=== PATIENT | female | born 1945 | race Caucasian/White ===

== ENCOUNTER 2018-09-19 19:43 | Inpatient (IN) | payer MEDICARE, MEDICAID, OTHER ==
[2018-09-19 21:04] LABS: BASO % 0.3 % (0.0-1.0); EOS # 0.5 10^3/uL (0.0-0.50); EOS % 4.4 % (0.0-3.0); HEMATOCRIT 36.5 % (36.0-47.0); HEMOGLOBIN 11.3 g/dl (12.0-15.5); IMMATURE GRANULOCYTE % 0.3 % (0-3.0); LYMPH # 2.1 10^3/uL (1.5-4.5); LYMPH % 19.3 % (24.0-44.0); MEAN CORPUSCULAR HEMOGLOBIN 28.7 pg (27.0-33.0); MEAN CORPUSCULAR VOLUME 92.6 fl (80.0-96.0); MONO # 0.8 10^3/uL (0.0-0.8); MONO % 7.6 % (0.0-5.0); NEUTROPHILS # 7.5 10^3/uL (1.8-7.7); NEUTROPHILS % 68.1 % (36.0-66.0); PLATELET COUNT, AUTOMATED 300 10^3/uL (150-450); RED BLOOD COUNT 3.94 10^6/uL (4.00-5.40); RED CELL DISTRIBUTION WIDTH 14.9 % (11.5-14.5)
[2018-09-19 21:08] LABS: INR 1.04; PROTHROMBIN TIME 13.7 SECONDS (12.1-14.4)
[2018-09-19 21:09] LABS: PARTIAL THROMBOPLASTIN TIME 43.1 SECONDS (25.4-37.6)
[2018-09-19 21:11] LABS: ANION GAP 6 MEQ/L (8-16); BLOOD UREA NITROGEN 21 MG/DL (7-18); C REACTIVE PROTEIN QUANTITATIV 3.66 MG/DL (0.00-0.30); CALCIUM LEVEL 9.3 MG/DL (8.8-10.2); CARBON DIOXIDE LEVEL 31 MEQ/L (21-32); CHLORIDE LEVEL 101 MEQ/L (98-107); CREATININE FOR GFR 1.39 MG/DL (0.55-1.30); GLOMERULAR FILTRATION RATE 39.3 (>39); GLUCOSE, FASTING 249 MG/DL (70-100); POTASSIUM SERUM 4.3 MEQ/L (3.5-5.1); SODIUM LEVEL 138 MEQ/L (136-145)
[2018-09-19 21:40] LABS: ERYTHROCYTE SEDIMENTATION RATE 62 mm/hr (0-30)
[2018-09-19] MEDS: CLINDAMYCIN 900 MG in APPROPRIATE DILUENT 1 EA IV (22:47)
[2018-09-20] MEDS ORDERED: ANUSOL HC CREAM 30GM TOP (00:15)
[2018-09-20] MEDS: DOCUSATE SODIUM 100 MG CAP PO ×3 (00:30→22:07)
[2018-09-20] MEDS: ACETAMINOPHEN TAB 650MG DOSE (2X325MG) PO ×2 (00:46→08:06)
[2018-09-20] MEDS: METOPROLOL SUCC (TopROL XL) 50MG **XL** TAB PO ×2 (02:00→22:09)
[2018-09-20] MEDS: FERROUS GLUCONATE 324 MG TAB PO ×3 (02:00→22:10)
[2018-09-20] MEDS: PANTOPRAZOLE 40MG TAB (PROTONIX) PO ×2 (02:00→17:25)
[2018-09-20] MEDS: ATORVASTATIN 20 MG TAB PO ×2 (02:00→22:10)
[2018-09-20] MEDS: PREGABALIN 75 MG CAP(LYRICA) PO ×3 (02:01→22:10)
[2018-09-20] MEDS: VITAMIN D 1,000 INTERNATIONAL UNITS TABLET PO ×3 (02:01→22:07)
[2018-09-20] MEDS: FAMOTIDINE 20 MG TAB PO ×3 (02:01→22:10)
[2018-09-20] MEDS: SUCRALFATE 1 GM TAB PO ×3 (02:02→22:10)
[2018-09-20] MEDS: TOPIRAMATE (TopAMAX) 100 MG TAB PO ×3 (02:08→22:10)
[2018-09-20] MEDS: NS 1,000 ML IV ×2 (02:09→12:34)
[2018-09-20] MEDS ORDERED: DEXTROSE 50% 50 ML SYRINGE IV (03:15)
[2018-09-20] MEDS ORDERED: GLUCOSE 4 GM CHEW TABLET PO (03:15)
[2018-09-20] MEDS ORDERED: GLUCAGON FOR INJ 1 MG VIAL (J1610) SC (03:15)
[2018-09-20 04:15] LABS: BEDSIDE GLUCOSE 162 MG/DL (83-110)
[2018-09-20] MEDS: LEVEMIR (INSULIN DETEMIR) 1 UNITS/0.01ML SC ×2 (04:26→22:11)
[2018-09-20] MEDS: CLINDAMYCIN 900 MG in APPROPRIATE DILUENT 1 EA IV ×2 (08:06→17:25)
[2018-09-20] MEDS: FENOFIBRATE 48 MG TAB (TRICOR) PO (08:07)
[2018-09-20] MEDS: LOSARTAN 25 MG TAB PO (08:07)
[2018-09-20] MEDS: HumaLOG INSULIN (NovoLOG) PER UNIT SC ×4 (08:07→22:12)
[2018-09-20] MEDS: ALLOPURINOL 100 MG TAB PO (08:07)
[2018-09-20] MEDS: CETIRIZINE (ZyrTEC) 10 MG TAB PO (08:08)
[2018-09-20] MEDS: ADVAIR HFA 230/21MCG INHALER INH ×2 (08:33→20:53)
[2018-09-20] MEDS ORDERED: SITagliptin 50 MG TAB (JANUVIA) PO (09:00)
[2018-09-20 12:10] LABS: BEDSIDE GLUCOSE 290 MG/DL (83-110)
[2018-09-20] MEDS: ALBUTEROL SULFATE 2.5 MG/0.5 ML INH NEB SOLN NEB ×2 (16:07→20:53)
[2018-09-20] MEDS ORDERED: MIRALAX *UNIT DOSE* 17GM PACKET PO (16:15)
[2018-09-20 16:53] LABS: BEDSIDE GLUCOSE 329 MG/DL (83-110)
[2018-09-20] MEDS: FUROSEMIDE 20 MG TAB PO (17:25)
[2018-09-20] MEDS: hydroCHLOROthiazide 25 MG TAB PO (17:25)
[2018-09-20] MEDS: FLEET ENEMA PR (17:46)
[2018-09-20 20:28] LABS: BEDSIDE GLUCOSE 297 MG/DL (83-110)
[2018-09-20] MEDS: SENOKOT S TAB PO (22:10)
[2018-09-21] MEDS: CLINDAMYCIN 900 MG in APPROPRIATE DILUENT 1 EA IV ×3 (00:12→17:24)
[2018-09-21] MEDS: ACETAMINOPHEN TAB 650MG DOSE (2X325MG) PO ×2 (00:13→22:04)
[2018-09-21 07:24] LABS: HEMATOCRIT 32.5 % (36.0-47.0); HEMOGLOBIN 9.8 g/dl (12.0-15.5); MEAN CORPUSCULAR HEMOGLOBIN 28.2 pg (27.0-33.0); MEAN CORPUSCULAR HGB CONC 30.2 g/dl (32.0-36.5); MEAN CORPUSCULAR VOLUME 93.4 fl (80.0-96.0); PLATELET COUNT, AUTOMATED 273 10^3/uL (150-450); RED BLOOD COUNT 3.48 10^6/uL (4.00-5.40); RED CELL DISTRIBUTION WIDTH 14.8 % (11.5-14.5); WHITE BLOOD COUNT 6.8 10^3/uL (4.0-10.0)
[2018-09-21] MEDS: ALBUTEROL SULFATE 2.5 MG/0.5 ML INH NEB SOLN NEB ×3 (07:44→15:48)
[2018-09-21] MEDS: ADVAIR HFA 230/21MCG INHALER INH ×2 (07:45→21:00)
[2018-09-21 07:56] LABS: ANION GAP 7 MEQ/L (8-16); BLOOD UREA NITROGEN 30 MG/DL (7-18); CALCIUM LEVEL 8.8 MG/DL (8.8-10.2); CARBON DIOXIDE LEVEL 27 MEQ/L (21-32); CHLORIDE LEVEL 104 MEQ/L (98-107); GLOMERULAR FILTRATION RATE 29.2 (>39); GLUCOSE, FASTING 310 MG/DL (70-100); POTASSIUM SERUM 4.1 MEQ/L (3.5-5.1); SODIUM LEVEL 138 MEQ/L (136-145)
[2018-09-21 07:58] LABS: FERRITIN 48 NG/ML (8-252); IRON (FE) 24 UG/DL (50-170); TOTAL IRON BINDING CAPACITY 341 UG/DL (250-450)
[2018-09-21] MEDS: DOCUSATE SODIUM 100 MG CAP PO ×2 (08:25→21:56)
[2018-09-21] MEDS: FAMOTIDINE 20 MG TAB PO ×2 (08:25→21:55)
[2018-09-21] MEDS: FUROSEMIDE 40 MG/4 ML VIAL (J1940) IV ×2 (08:25→17:24)
[2018-09-21] MEDS: VITAMIN D 1,000 INTERNATIONAL UNITS TABLET PO ×2 (08:25→21:56)
[2018-09-21] MEDS: CETIRIZINE (ZyrTEC) 10 MG TAB PO (08:26)
[2018-09-21] MEDS: TOPIRAMATE (TopAMAX) 100 MG TAB PO ×2 (08:26→21:56)
[2018-09-21] MEDS: SENOKOT S TAB PO ×2 (08:26→21:56)
[2018-09-21] MEDS: LOSARTAN 25 MG TAB PO (08:26)
[2018-09-21] MEDS: FENOFIBRATE 48 MG TAB (TRICOR) PO (08:26)
[2018-09-21] MEDS: SUCRALFATE 1 GM TAB PO ×2 (08:26→21:56)
[2018-09-21] MEDS: ALLOPURINOL 100 MG TAB PO (08:26)
[2018-09-21] MEDS: FERROUS GLUCONATE 324 MG TAB PO ×2 (08:26→21:56)
[2018-09-21] MEDS: PREGABALIN 75 MG CAP(LYRICA) PO ×2 (08:27→21:55)
[2018-09-21] MEDS: LEVEMIR (INSULIN DETEMIR) 1 UNITS/0.01ML SC ×2 (08:27→21:56)
[2018-09-21] MEDS: HumaLOG INSULIN (NovoLOG) PER UNIT SC ×4 (08:28→21:00)
[2018-09-21] MEDS ORDERED: LEVEMIR (INSULIN DETEMIR) 1 UNITS/0.01ML SC (09:00)
[2018-09-21 11:48] LABS: VITAMIN B12 LEVEL 368 PG/ML (247-911)
[2018-09-21 11:49] LABS: FOLATE 6.6 NG/ML (>5.4)
[2018-09-21 12:28] LABS: BEDSIDE GLUCOSE 292 MG/DL (83-110)
[2018-09-21 17:12] LABS: BEDSIDE GLUCOSE 215 MG/DL (83-110)
[2018-09-21] MEDS: PANTOPRAZOLE 40MG TAB (PROTONIX) PO (17:24)
[2018-09-21 20:28] LABS: BEDSIDE GLUCOSE 248 MG/DL (83-110)
[2018-09-21] MEDS: ATORVASTATIN 20 MG TAB PO (21:55)
[2018-09-21] MEDS: METOPROLOL SUCC (TopROL XL) 50MG **XL** TAB PO (21:55)
[2018-09-22] MEDS: CLINDAMYCIN 900 MG in APPROPRIATE DILUENT 1 EA IV ×2 (00:19→08:29)
[2018-09-22 07:03] LABS: HEMATOCRIT 33.6 % (36.0-47.0); HEMOGLOBIN 10.4 g/dl (12.0-15.5); MEAN CORPUSCULAR HEMOGLOBIN 28.6 pg (27.0-33.0); MEAN CORPUSCULAR VOLUME 92.3 fl (80.0-96.0); PLATELET COUNT, AUTOMATED 307 10^3/uL (150-450); RED BLOOD COUNT 3.64 10^6/uL (4.00-5.40); RED CELL DISTRIBUTION WIDTH 14.6 % (11.5-14.5)
[2018-09-22 07:35] LABS: ANION GAP 8 MEQ/L (8-16); BLOOD UREA NITROGEN 40 MG/DL (7-18); CALCIUM LEVEL 8.9 MG/DL (8.8-10.2); CARBON DIOXIDE LEVEL 30 MEQ/L (21-32); CHLORIDE LEVEL 99 MEQ/L (98-107); CREATININE FOR GFR 1.97 MG/DL (0.55-1.30); GLOMERULAR FILTRATION RATE 26.3 (>39); GLUCOSE, FASTING 313 MG/DL (70-100); POTASSIUM SERUM 4.5 MEQ/L (3.5-5.1); SODIUM LEVEL 137 MEQ/L (136-145)
[2018-09-22] MEDS: ALBUTEROL SULFATE 2.5 MG/0.5 ML INH NEB SOLN NEB ×3 (07:40→15:38)
[2018-09-22] MEDS: ADVAIR HFA 230/21MCG INHALER INH ×2 (07:40→19:57)
[2018-09-22] MEDS: FUROSEMIDE 40 MG/4 ML VIAL (J1940) IV ×2 (08:28→17:53)
[2018-09-22] MEDS: HumaLOG INSULIN (NovoLOG) PER UNIT SC ×4 (08:29→21:00)
[2018-09-22] MEDS: LEVEMIR (INSULIN DETEMIR) 1 UNITS/0.01ML SC ×3 (08:29→21:00)
[2018-09-22] MEDS: LOSARTAN 25 MG TAB PO (08:30)
[2018-09-22] MEDS: ACETAMINOPHEN TAB 650MG DOSE (2X325MG) PO ×3 (08:30→22:00)
[2018-09-22] MEDS: CETIRIZINE (ZyrTEC) 10 MG TAB PO (08:30)
[2018-09-22] MEDS: FERROUS GLUCONATE 324 MG TAB PO ×2 (08:30→21:49)
[2018-09-22] MEDS: VITAMIN D 1,000 INTERNATIONAL UNITS TABLET PO ×2 (08:31→21:49)
[2018-09-22] MEDS: ALLOPURINOL 100 MG TAB PO (08:31)
[2018-09-22] MEDS: TOPIRAMATE (TopAMAX) 100 MG TAB PO ×2 (08:32→21:49)
[2018-09-22] MEDS: FAMOTIDINE 20 MG TAB PO ×2 (08:32→21:49)
[2018-09-22] MEDS: DOCUSATE SODIUM 100 MG CAP PO ×2 (08:32→21:45)
[2018-09-22] MEDS: FENOFIBRATE 48 MG TAB (TRICOR) PO (08:32)
[2018-09-22] MEDS: SENOKOT S TAB PO ×2 (08:33→21:50)
[2018-09-22] MEDS: PREGABALIN 75 MG CAP(LYRICA) PO ×2 (08:33→21:46)
[2018-09-22] MEDS: SUCRALFATE 1 GM TAB PO ×2 (08:33→21:49)
[2018-09-22] MEDS: GOLYTELY SOLN 4000 ML BTL PO (12:01)
[2018-09-22 12:07] LABS: C REACTIVE PROTEIN QUANTITATIV 2.11 MG/DL (0.00-0.30)
[2018-09-22] MEDS: LACTOBACILLUS ACIDOPHILUS CAP (BACID) PO ×3 (12:29→21:50)
[2018-09-22 14:26] LABS: ESTIMATED AVERAGE GLUCOSE 229 MG/DL (60-110); HEMOGLOBIN A1c 9.6 %
[2018-09-22] MEDS: CLINDAMYCIN 150 MG CAP PO ×2 (14:35→21:49)
[2018-09-22] MEDS: PANTOPRAZOLE 40MG TAB (PROTONIX) PO (17:53)
[2018-09-22] MEDS: METOPROLOL SUCC (TopROL XL) 50MG **XL** TAB PO (21:49)
[2018-09-22] MEDS: ATORVASTATIN 20 MG TAB PO (21:50)
[2018-09-23 02:26] LABS: BEDSIDE GLUCOSE 269 MG/DL (83-110)
[2018-09-23 02:26] LABS: BEDSIDE GLUCOSE 197 MG/DL (83-110)
[2018-09-23 02:26] LABS: BEDSIDE GLUCOSE 186 MG/DL (83-110)
[2018-09-23] MEDS: CLINDAMYCIN 150 MG CAP PO ×3 (06:23→21:51)
[2018-09-23 06:57] LABS: HEMATOCRIT 33.4 % (36.0-47.0); HEMOGLOBIN 10.6 g/dl (12.0-15.5); MEAN CORPUSCULAR HEMOGLOBIN 28.1 pg (27.0-33.0); MEAN CORPUSCULAR HGB CONC 31.7 g/dl (32.0-36.5); MEAN CORPUSCULAR VOLUME 88.6 fl (80.0-96.0); PLATELET COUNT, AUTOMATED 335 10^3/uL (150-450); RED BLOOD COUNT 3.77 10^6/uL (4.00-5.40); RED CELL DISTRIBUTION WIDTH 14.6 % (11.5-14.5); WHITE BLOOD COUNT 7.3 10^3/uL (4.0-10.0)
[2018-09-23] MEDS: ADVAIR HFA 230/21MCG INHALER INH ×2 (07:12→20:04)
[2018-09-23] MEDS: ALBUTEROL SULFATE 2.5 MG/0.5 ML INH NEB SOLN NEB ×4 (07:12→23:33)
[2018-09-23 07:20] LABS: ANION GAP 9 MEQ/L (8-16); BLOOD UREA NITROGEN 40 MG/DL (7-18); CALCIUM LEVEL 9.2 MG/DL (8.8-10.2); CARBON DIOXIDE LEVEL 31 MEQ/L (21-32); CHLORIDE LEVEL 100 MEQ/L (98-107); CREATININE FOR GFR 1.79 MG/DL (0.55-1.30); GLOMERULAR FILTRATION RATE 29.4 (>39); GLUCOSE, FASTING 203 MG/DL (70-100); POTASSIUM SERUM 3.5 MEQ/L (3.5-5.1); SODIUM LEVEL 140 MEQ/L (136-145)
[2018-09-23] MEDS: HumaLOG INSULIN (NovoLOG) PER UNIT SC ×4 (08:09→21:52)
[2018-09-23] MEDS: LACTOBACILLUS ACIDOPHILUS CAP (BACID) PO ×4 (08:10→21:49)
[2018-09-23] MEDS ORDERED: PROPOFOL 200 MG/20 ML VIAL As Ordered (10:22)
[2018-09-23] MEDS ORDERED: LIDOCAINE 2% INJ 100 MG/5 ML SDV (FOR ANES.) As Ordered (10:22)
[2018-09-23] MEDS ORDERED: fentaNYL 100 MCG/2 ML INJECTION (J3010) As Ordered (10:22)
[2018-09-23] MEDS ORDERED: PHENYLephrine HCL 500 MCG/5 ML (100MCG/ML) SYRINGE (J2370) As Ordered (10:57)
[2018-09-23] MEDS ORDERED: ONDANSETRON 4MG/2ML VIAL (J2405) IV (11:30)
[2018-09-23 12:33] LABS: BEDSIDE GLUCOSE 216 MG/DL (83-110)
[2018-09-23] MEDS: FUROSEMIDE 40 MG/4 ML VIAL (J1940) IV ×2 (12:58→18:13)
[2018-09-23] MEDS: LR 1,000 ML IV (12:58)
[2018-09-23] MEDS: LEVEMIR (INSULIN DETEMIR) 1 UNITS/0.01ML SC ×2 (12:59→21:52)
[2018-09-23] MEDS: ACETAMINOPHEN TAB 650MG DOSE (2X325MG) PO ×2 (13:00→18:12)
[2018-09-23] MEDS: LOSARTAN 25 MG TAB PO (13:00)
[2018-09-23] MEDS: SENOKOT S TAB PO ×2 (13:01→21:50)
[2018-09-23] MEDS: PREGABALIN 75 MG CAP(LYRICA) PO ×2 (13:01→21:49)
[2018-09-23] MEDS: FERROUS GLUCONATE 324 MG TAB PO ×2 (13:01→21:51)
[2018-09-23] MEDS: DOCUSATE SODIUM 100 MG CAP PO ×2 (13:01→21:51)
[2018-09-23] MEDS: FENOFIBRATE 48 MG TAB (TRICOR) PO (13:01)
[2018-09-23] MEDS: TOPIRAMATE (TopAMAX) 100 MG TAB PO ×2 (13:02→21:51)
[2018-09-23] MEDS: VITAMIN D 1,000 INTERNATIONAL UNITS TABLET PO ×2 (13:02→21:51)
[2018-09-23] MEDS: SUCRALFATE 1 GM TAB PO ×2 (13:02→21:50)
[2018-09-23] MEDS: ALLOPURINOL 100 MG TAB PO (13:02)
[2018-09-23] MEDS: FAMOTIDINE 20 MG TAB PO ×2 (13:02→21:51)
[2018-09-23] MEDS: CETIRIZINE (ZyrTEC) 10 MG TAB PO (13:02)
[2018-09-23 17:20] LABS: BEDSIDE GLUCOSE 346 MG/DL (83-110)
[2018-09-23] MEDS: PANTOPRAZOLE 40MG TAB (PROTONIX) PO (18:10)
[2018-09-23 21:15] LABS: BEDSIDE GLUCOSE 346 MG/DL (83-110)
[2018-09-23] MEDS: METOPROLOL SUCC (TopROL XL) 50MG **XL** TAB PO (21:50)
[2018-09-23] MEDS: ATORVASTATIN 20 MG TAB PO (21:51)
[2018-09-24] MEDS: CLINDAMYCIN 150 MG CAP PO ×3 (05:09→21:00)
[2018-09-24 06:49] LABS: HEMATOCRIT 32.8 % (36.0-47.0); HEMOGLOBIN 10.3 g/dl (12.0-15.5); MEAN CORPUSCULAR HEMOGLOBIN 28.2 pg (27.0-33.0); MEAN CORPUSCULAR HGB CONC 31.4 g/dl (32.0-36.5); MEAN CORPUSCULAR VOLUME 89.9 fl (80.0-96.0); PLATELET COUNT, AUTOMATED 337 10^3/uL (150-450); RED BLOOD COUNT 3.65 10^6/uL (4.00-5.40); RED CELL DISTRIBUTION WIDTH 14.7 % (11.5-14.5); WHITE BLOOD COUNT 6.1 10^3/uL (4.0-10.0)
[2018-09-24 07:10] LABS: ANION GAP 7 MEQ/L (8-16); BLOOD UREA NITROGEN 47 MG/DL (7-18); CALCIUM LEVEL 9.1 MG/DL (8.8-10.2); CARBON DIOXIDE LEVEL 31 MEQ/L (21-32); CHLORIDE LEVEL 99 MEQ/L (98-107); CREATININE FOR GFR 1.97 MG/DL (0.55-1.30); GLOMERULAR FILTRATION RATE 26.3 (>39); GLUCOSE, FASTING 241 MG/DL (70-100); POTASSIUM SERUM 3.6 MEQ/L (3.5-5.1); SODIUM LEVEL 137 MEQ/L (136-145)
[2018-09-24] MEDS: ALBUTEROL SULFATE 2.5 MG/0.5 ML INH NEB SOLN NEB ×3 (07:12→23:12)
[2018-09-24] MEDS: ADVAIR HFA 230/21MCG INHALER INH ×2 (07:12→20:18)
[2018-09-24] MEDS: VITAMIN D 1,000 INTERNATIONAL UNITS TABLET PO ×2 (08:42→20:58)
[2018-09-24] MEDS: FERROUS GLUCONATE 324 MG TAB PO ×2 (08:42→20:57)
[2018-09-24] MEDS: PREGABALIN 75 MG CAP(LYRICA) PO ×2 (08:42→20:57)
[2018-09-24] MEDS: TOPIRAMATE (TopAMAX) 100 MG TAB PO ×2 (08:43→20:56)
[2018-09-24] MEDS: SUCRALFATE 1 GM TAB PO ×2 (08:43→20:57)
[2018-09-24] MEDS: LACTOBACILLUS ACIDOPHILUS CAP (BACID) PO ×4 (08:43→20:56)
[2018-09-24] MEDS: DOCUSATE SODIUM 100 MG CAP PO ×2 (08:43→21:00)
[2018-09-24] MEDS: FENOFIBRATE 48 MG TAB (TRICOR) PO (08:43)
[2018-09-24] MEDS: LOSARTAN 25 MG TAB PO (08:43)
[2018-09-24] MEDS: CETIRIZINE (ZyrTEC) 10 MG TAB PO (08:43)
[2018-09-24] MEDS: FAMOTIDINE 20 MG TAB PO ×2 (08:43→20:56)
[2018-09-24] MEDS: ALLOPURINOL 100 MG TAB PO (08:44)
[2018-09-24] MEDS: LEVEMIR (INSULIN DETEMIR) 1 UNITS/0.01ML SC ×2 (08:45→20:59)
[2018-09-24] MEDS: HumaLOG INSULIN (NovoLOG) PER UNIT SC ×4 (08:46→20:59)
[2018-09-24] MEDS: SENOKOT S TAB PO ×2 (08:51→20:56)
[2018-09-24 11:13] LABS: BEDSIDE GLUCOSE 275 MG/DL (83-110)
[2018-09-24 16:14] LABS: BEDSIDE GLUCOSE 240 MG/DL (83-110)
[2018-09-24] MEDS: PANTOPRAZOLE 40MG TAB (PROTONIX) PO (17:16)
[2018-09-24 20:43] LABS: BEDSIDE GLUCOSE 271 MG/DL (83-110)
[2018-09-24] MEDS: ATORVASTATIN 20 MG TAB PO (20:56)
[2018-09-24] MEDS: METOPROLOL SUCC (TopROL XL) 50MG **XL** TAB PO (20:58)
[2018-09-25] MEDS: CLINDAMYCIN 150 MG CAP PO ×2 (05:34→13:41)
[2018-09-25 06:31] LABS: HEMATOCRIT 31.5 % (36.0-47.0); HEMOGLOBIN 9.8 g/dl (12.0-15.5); MEAN CORPUSCULAR HEMOGLOBIN 28.2 pg (27.0-33.0); MEAN CORPUSCULAR HGB CONC 31.1 g/dl (32.0-36.5); MEAN CORPUSCULAR VOLUME 90.8 fl (80.0-96.0); PLATELET COUNT, AUTOMATED 327 10^3/uL (150-450); RED BLOOD COUNT 3.47 10^6/uL (4.00-5.40); RED CELL DISTRIBUTION WIDTH 14.6 % (11.5-14.5); WHITE BLOOD COUNT 6.1 10^3/uL (4.0-10.0)
[2018-09-25 06:40] LABS: ANION GAP 4 MEQ/L (8-16); BLOOD UREA NITROGEN 44 MG/DL (7-18); CARBON DIOXIDE LEVEL 31 MEQ/L (21-32); CHLORIDE LEVEL 104 MEQ/L (98-107); CREATININE FOR GFR 1.61 MG/DL (0.55-1.30); GLOMERULAR FILTRATION RATE 33.2 (>39); GLUCOSE, FASTING 293 MG/DL (70-100); SODIUM LEVEL 139 MEQ/L (136-145)
[2018-09-25] MEDS: ADVAIR HFA 230/21MCG INHALER INH ×2 (07:40→19:56)
[2018-09-25] MEDS: ALBUTEROL SULFATE 2.5 MG/0.5 ML INH NEB SOLN NEB ×3 (07:41→17:37)
[2018-09-25] MEDS: FENOFIBRATE 48 MG TAB (TRICOR) PO (08:13)
[2018-09-25] MEDS: SUCRALFATE 1 GM TAB PO ×2 (08:13→22:00)
[2018-09-25] MEDS: PREGABALIN 75 MG CAP(LYRICA) PO ×2 (08:13→22:02)
[2018-09-25] MEDS: FAMOTIDINE 20 MG TAB PO ×2 (08:13→22:00)
[2018-09-25] MEDS: LACTOBACILLUS ACIDOPHILUS CAP (BACID) PO ×4 (08:13→21:59)
[2018-09-25] MEDS: FERROUS GLUCONATE 324 MG TAB PO ×2 (08:14→21:59)
[2018-09-25] MEDS: DOCUSATE SODIUM 100 MG CAP PO ×2 (08:14→08:18)
[2018-09-25] MEDS: SENOKOT S TAB PO ×2 (08:14→08:18)
[2018-09-25] MEDS: CETIRIZINE (ZyrTEC) 10 MG TAB PO (08:14)
[2018-09-25] MEDS: ALLOPURINOL 100 MG TAB PO (08:14)
[2018-09-25] MEDS: TOPIRAMATE (TopAMAX) 100 MG TAB PO ×2 (08:14→21:59)
[2018-09-25] MEDS: VITAMIN D 1,000 INTERNATIONAL UNITS TABLET PO ×2 (08:14→21:59)
[2018-09-25] MEDS: HumaLOG INSULIN (NovoLOG) PER UNIT SC ×4 (08:15→21:00)
[2018-09-25] MEDS: LEVEMIR (INSULIN DETEMIR) 1 UNITS/0.01ML SC ×2 (08:15→22:01)
[2018-09-25 12:17] LABS: BEDSIDE GLUCOSE 205 MG/DL (83-110)
[2018-09-25] MEDS: FUROSEMIDE 20 MG TAB PO (12:39)
[2018-09-25] MEDS: APIXABAN 2.5 MG TAB (ELIQUIS) PO ×2 (12:39→21:59)
[2018-09-25 16:43] LABS: BEDSIDE GLUCOSE 340 MG/DL (83-110)
[2018-09-25] MEDS: PANTOPRAZOLE 40MG TAB (PROTONIX) PO (16:46)
[2018-09-25 21:51] LABS: BEDSIDE GLUCOSE 239 MG/DL (83-110)
[2018-09-25] MEDS: ATORVASTATIN 20 MG TAB PO (21:59)
[2018-09-25] MEDS: DOXYCYCLINE HYCLATE 100 MG TAB PO (21:59)
[2018-09-25] MEDS: METOPROLOL SUCC (TopROL XL) 50MG **XL** TAB PO (22:00)
[2018-09-26] MEDS: ADVAIR HFA 230/21MCG INHALER INH ×2 (07:32→20:26)
[2018-09-26] MEDS: ALBUTEROL SULFATE 2.5 MG/0.5 ML INH NEB SOLN NEB ×4 (07:36→23:28)
[2018-09-26 08:00] LABS: HEMOGLOBIN 9.8 g/dl (12.0-15.5); MEAN CORPUSCULAR HEMOGLOBIN 27.8 pg (27.0-33.0); MEAN CORPUSCULAR HGB CONC 30.6 g/dl (32.0-36.5); MEAN CORPUSCULAR VOLUME 90.7 fl (80.0-96.0); PLATELET COUNT, AUTOMATED 327 10^3/uL (150-450); RED BLOOD COUNT 3.53 10^6/uL (4.00-5.40); RED CELL DISTRIBUTION WIDTH 14.6 % (11.5-14.5); WHITE BLOOD COUNT 6.6 10^3/uL (4.0-10.0)
[2018-09-26 08:27] LABS: ANION GAP 5 MEQ/L (8-16); BLOOD UREA NITROGEN 42 MG/DL (7-18); CALCIUM LEVEL 9.4 MG/DL (8.8-10.2); CARBON DIOXIDE LEVEL 31 MEQ/L (21-32); CHLORIDE LEVEL 106 MEQ/L (98-107); CREATININE FOR GFR 1.41 MG/DL (0.55-1.30); GLOMERULAR FILTRATION RATE 38.7 (>39); GLUCOSE, FASTING 216 MG/DL (70-100); POTASSIUM SERUM 4.1 MEQ/L (3.5-5.1); SODIUM LEVEL 142 MEQ/L (136-145)
[2018-09-26] MEDS ORDERED: LEVEMIR (INSULIN DETEMIR) 1 UNITS/0.01ML SC (09:00)
[2018-09-26] MEDS: LEVEMIR (INSULIN DETEMIR) 1 UNITS/0.01ML SC ×2 (10:12→20:52)
[2018-09-26] MEDS: FENOFIBRATE 48 MG TAB (TRICOR) PO (10:13)
[2018-09-26] MEDS: HumaLOG INSULIN (NovoLOG) PER UNIT SC ×4 (10:13→20:52)
[2018-09-26] MEDS: VITAMIN D 1,000 INTERNATIONAL UNITS TABLET PO ×2 (10:13→20:52)
[2018-09-26] MEDS: FUROSEMIDE 20 MG TAB PO (10:14)
[2018-09-26] MEDS: FAMOTIDINE 20 MG TAB PO ×2 (10:14→20:54)
[2018-09-26] MEDS: CETIRIZINE (ZyrTEC) 10 MG TAB PO (10:14)
[2018-09-26] MEDS: DOXYCYCLINE HYCLATE 100 MG TAB PO ×2 (10:15→20:53)
[2018-09-26] MEDS: TOPIRAMATE (TopAMAX) 100 MG TAB PO ×2 (10:15→20:54)
[2018-09-26] MEDS: PREGABALIN 75 MG CAP(LYRICA) PO ×2 (10:15→20:53)
[2018-09-26] MEDS: FERROUS GLUCONATE 324 MG TAB PO ×2 (10:16→20:53)
[2018-09-26] MEDS: SUCRALFATE 1 GM TAB PO ×2 (10:16→20:53)
[2018-09-26] MEDS: APIXABAN 2.5 MG TAB (ELIQUIS) PO ×2 (10:16→20:54)
[2018-09-26] MEDS: ALLOPURINOL 100 MG TAB PO (10:16)
[2018-09-26] MEDS: LACTOBACILLUS ACIDOPHILUS CAP (BACID) PO ×4 (10:16→20:53)
[2018-09-26] MEDS: ACETAMINOPHEN TAB 650MG DOSE (2X325MG) PO (10:19)
[2018-09-26] MEDS: PANTOPRAZOLE 40MG TAB (PROTONIX) PO (16:56)
[2018-09-26] MEDS: ATORVASTATIN 20 MG TAB PO (20:53)
[2018-09-26] MEDS: METOPROLOL SUCC (TopROL XL) 50MG **XL** TAB PO (20:54)
[2018-09-27 03:08] LABS: BEDSIDE GLUCOSE 266 MG/DL (83-110)
[2018-09-27 03:08] LABS: BEDSIDE GLUCOSE 214 MG/DL (83-110)
[2018-09-27 03:08] LABS: BEDSIDE GLUCOSE 266 MG/DL (83-110)
[2018-09-27 03:08] LABS: BEDSIDE GLUCOSE 279 MG/DL (83-110)
[2018-09-27 06:12] LABS: HEMATOCRIT 32.1 % (36.0-47.0); MEAN CORPUSCULAR HEMOGLOBIN 28.7 pg (27.0-33.0); MEAN CORPUSCULAR HGB CONC 31.2 g/dl (32.0-36.5); MEAN CORPUSCULAR VOLUME 92.2 fl (80.0-96.0); PLATELET COUNT, AUTOMATED 310 10^3/uL (150-450); RED BLOOD COUNT 3.48 10^6/uL (4.00-5.40); RED CELL DISTRIBUTION WIDTH 14.6 % (11.5-14.5); WHITE BLOOD COUNT 6.9 10^3/uL (4.0-10.0)
[2018-09-27 06:18] LABS: ANION GAP 4 MEQ/L (8-16); BLOOD UREA NITROGEN 48 MG/DL (7-18); CALCIUM LEVEL 9.1 MG/DL (8.8-10.2); CARBON DIOXIDE LEVEL 31 MEQ/L (21-32); CHLORIDE LEVEL 106 MEQ/L (98-107); CREATININE FOR GFR 1.51 MG/DL (0.55-1.30); GLOMERULAR FILTRATION RATE 35.8 (>39); GLUCOSE, FASTING 237 MG/DL (70-100); POTASSIUM SERUM 4.2 MEQ/L (3.5-5.1); SODIUM LEVEL 141 MEQ/L (136-145)
[2018-09-27] MEDS: CETIRIZINE (ZyrTEC) 10 MG TAB PO (09:12)
[2018-09-27] MEDS: SUCRALFATE 1 GM TAB PO (09:12)
[2018-09-27] MEDS: DOXYCYCLINE HYCLATE 100 MG TAB PO (09:12)
[2018-09-27] MEDS: APIXABAN 2.5 MG TAB (ELIQUIS) PO (09:12)
[2018-09-27] MEDS: FENOFIBRATE 48 MG TAB (TRICOR) PO (09:12)
[2018-09-27] MEDS: HumaLOG INSULIN (NovoLOG) PER UNIT SC ×2 (09:12→12:22)
[2018-09-27] MEDS: FAMOTIDINE 20 MG TAB PO (09:12)
[2018-09-27] MEDS: LACTOBACILLUS ACIDOPHILUS CAP (BACID) PO ×2 (09:12→12:22)
[2018-09-27] MEDS: ALLOPURINOL 100 MG TAB PO (09:12)
[2018-09-27] MEDS: ACETAMINOPHEN TAB 650MG DOSE (2X325MG) PO (09:13)
[2018-09-27] MEDS: PREGABALIN 75 MG CAP(LYRICA) PO (09:13)
[2018-09-27] MEDS: FUROSEMIDE 20 MG TAB PO (09:13)
[2018-09-27] MEDS: TOPIRAMATE (TopAMAX) 100 MG TAB PO (09:13)
[2018-09-27] MEDS: FERROUS GLUCONATE 324 MG TAB PO (09:14)
[2018-09-27] MEDS: VITAMIN D 1,000 INTERNATIONAL UNITS TABLET PO (09:14)
[2018-09-27] MEDS: LEVEMIR (INSULIN DETEMIR) 1 UNITS/0.01ML SC (09:14)
[2018-09-27] MEDS: ADVAIR HFA 230/21MCG INHALER INH (11:29)
[2018-09-27 11:30] LABS: BEDSIDE GLUCOSE 193 MG/DL (83-110)
[2018-09-27] MEDS: ALBUTEROL SULFATE 2.5 MG/0.5 ML INH NEB SOLN NEB (11:30)
== END 2018-09-27 14:45 | disposition home or self-care (01) | DRG 377 ==
LOC: M ED INP 09-20 00:10 → M MS5PR 09-20 01:41 → M ED 19:43
PROC: 0DJ08ZZ Inspection of Upper Intestinal Tract, Via Natural or Artificial Opening Endoscopic (ICD-10-PCS; principal; 2018-09-23 09:00)
PROC: 0DJD8ZZ Inspection of Lower Intestinal Tract, Via Natural or Artificial Opening Endoscopic (ICD-10-PCS; 2018-09-23 09:00)
DX: K29.71 Gastritis, unspecified, with bleeding (principal); I50.31 Acute diastolic (congestive) heart failure; L03.811 Cellulitis of head [any part, except face]; J96.11 Chronic respiratory failure with hypoxia; Z68.41 Body mass index [BMI] 40.0-44.9, adult; N17.9 Acute kidney failure, unspecified; L03.211 Cellulitis of face; K64.2 Third degree hemorrhoids; E11.22 Type 2 diabetes mellitus with diabetic chronic kidney disease; K59.00 Constipation, unspecified; M10.9 Gout, unspecified; E78.5 Hyperlipidemia, unspecified; J45.909 Unspecified asthma, uncomplicated; D50.9 Iron deficiency anemia, unspecified; J44.9 Chronic obstructive pulmonary disease, unspecified; D63.8 Anemia in other chronic diseases classified elsewhere; E11.40 Type 2 diabetes mellitus with diabetic neuropathy, unspecified; B95.62 Methicillin resistant Staphylococcus aureus infection as the cause of diseases classified elsewhere; G43.909 Migraine, unspecified, not intractable, without status migrainosus; I50.811 Acute right heart failure; E66.01 Morbid (severe) obesity due to excess calories; N18.3 Chronic kidney disease, stage 3 (moderate); Z88.8 Allergy status to other drugs, medicaments and biological substances; Z99.81 Dependence on supplemental oxygen; Z79.82 Long term (current) use of aspirin; Z86.711 Personal history of pulmonary embolism; Z79.899 Other long term (current) drug therapy; Z79.01 Long term (current) use of anticoagulants; Z79.4 Long term (current) use of insulin; Z88.6 Allergy status to analgesic agent; Z88.2 Allergy status to sulfonamides; Z95.2 Presence of prosthetic heart valve; Z86.14 Personal history of Methicillin resistant Staphylococcus aureus infection; Z98.49 Cataract extraction status, unspecified eye

== ENCOUNTER → 2020-08-13 | Outpatient (REF) | payer MEDICARE, MEDICAID ==
[~2020-08-13] MED LIST: ADV500INH INH; ALLO100T PO; ASPI81CH33 PO; ASPI81CH49 PO; ATOR1POW XX; ATOR40TA75 PO; BASA100I SC; CARA1TAB6 PO; COLA100C5 PO; DOCU100C16 PO; DOXY100T PO; ELIQ2.5T PO; FAMO1TAB11 PO; FENO48TA7 PO; FERR325T16 PO; FERR32TA PO; FURO20TA2 PO; HYDR2.5C TOP; HYDR25TAB PO; INSULADS INJ; IRON65TA PO; LACT10PA PO; LACT10SO3 PO; LOSA25TA14 PO; LYRI150C PO; METO1TAB32 PO; METO1TAB7 PO; PEPC1TAB5 PO; PREG1POW XX; PROT1TAB2 PO; PROTPAK PO; SITA50TAB PO; SUCR1TA PO; TOPI200T7 PO; TRIC145T22 PO; VENTAER INH; VITA200015 PO; ZYRT10CA PO; ZYRT10CA5 PO
[2020-08-13 17:55] LABS: PERCENT SATURATION 5.9 % (13.2-45.0)
[2020-08-13 18:08] LABS: FOLATE 23.1 NG/ML
== END ==
LOC: M LAB REF 17:10
PROVIDERS: ATTEND Internal Medicine Nephrology
DX: D64.9 Anemia, unspecified (principal)

== ENCOUNTER 2020-09-24 11:16 | Outpatient (CLI) | payer MEDICAID, MEDICARE ==
[~2020-09-24] VITALS: Ht 147.3 cm; Wt 91.1 kg
[2020-09-24 11:25] VITALS: BP 121/57
[2020-09-24] MEDS ORDERED: EPINEPHrine INJ 1 MG/ML 1ML AMP IM PRN (12:30)
[2020-09-24] MEDS ORDERED: ALBUTEROL SULFATE 2.5 MG/0.5 ML INH NEB SOLN INH PRN (12:30)
[2020-09-24] MEDS ORDERED: diphenhydrAMINE 50MG/ML VIAL (J1200) IV PRN (12:30)
[2020-09-24] MEDS ORDERED: FERRIC CARBOXYMALTOSE INJ 750 MG in NS 250 ML IV ONE (12:30)
[2020-09-24] MEDS ORDERED: NS 1,000 ML IV SCH (12:30)
[2020-09-24] MEDS ORDERED: methylPREDNISolone 125MG 2ML VIAL IV PRN (12:30)
[2020-09-24 12:34] LABS: HEMATOCRIT 35.7 % (36.0-47.0); HEMOGLOBIN 10.7 g/dl (12.0-15.5)
[2020-09-24 12:55] LABS: PERCENT SATURATION 7.2 % (13.2-45.0)
[2020-09-24 14:00] VITALS: BP 119/56
[2020-09-24 16:00] VITALS: BP 140/78
== END 2020-09-24 17:50 | disposition home or self-care (01) ==
LOC: M INFU 11:16
PROVIDERS: ATTEND Internal Medicine Nephrology
DX: D64.9 Anemia, unspecified (principal); Z88.2 Allergy status to sulfonamides; Z88.8 Allergy status to other drugs, medicaments and biological substances; Z88.6 Allergy status to analgesic agent
CPT/HCPCS: 36592; 82728; 83550; 85014; 85018; 96365; 96366; J1439

== ENCOUNTER 2020-10-01 09:53 | Outpatient (CLI) | payer MEDICARE, MEDICAID ==
[~2020-10-01] VITALS: Ht 147.3 cm; Wt 91.1 kg
[2020-10-01 10:00] VITALS: BP 108/58
[2020-10-01 11:35] LABS: BASO % 0.5 % (0.0-1.0); EOS # 0.3 10^3/uL (0.0-0.5); EOS % 5.5 % (0.0-3.0); HEMATOCRIT 36.6 % (36.0-47.0); HEMOGLOBIN 10.9 g/dl (12.0-15.5); LYMPH # 1.7 10^3/uL (1.5-5.0); LYMPH % 30.1 % (24.0-44.0); MEAN CORPUSCULAR HEMOGLOBIN 27.4 pg (27.0-33.0); MEAN CORPUSCULAR HGB CONC 29.8 g/dl (32.0-36.5); MONO # 0.7 10^3/uL (0.0-0.8); MONO % 12.8 % (0.0-5.0); NEUTROPHILS # 2.8 10^3/uL (1.5-8.5); NEUTROPHILS % 50.2 % (36.0-66.0); PLATELET COUNT, AUTOMATED 276 10^3/uL (150-450); RED BLOOD COUNT 3.98 10^6/uL (4.00-5.40); WHITE BLOOD COUNT 5.5 10^3/uL (4.0-10.0)
[2020-10-01 12:11] LABS: CREATININE, URINE < 13.0 MG/DL; MALB URINE SIEMENS < 5.0 MG/L
[2020-10-01 12:30] VITALS: BP 109/54
[2020-10-01] MEDS ORDERED: ALBUTEROL SULFATE 2.5 MG/0.5 ML INH NEB SOLN INH PRN (12:30)
[2020-10-01] MEDS ORDERED: FERRIC CARBOXYMALTOSE INJ 750 MG in NS 250 ML IV ONE (12:30)
[2020-10-01] MEDS ORDERED: diphenhydrAMINE 50MG/ML VIAL (J1200) IV PRN (12:30)
[2020-10-01] MEDS ORDERED: NS 1,000 ML IV SCH (12:30)
[2020-10-01] MEDS ORDERED: methylPREDNISolone 125MG 2ML VIAL IV PRN (12:30)
[2020-10-01] MEDS ORDERED: EPINEPHrine INJ 1 MG/ML 1ML AMP IM PRN (12:30)
[2020-10-01 14:30] VITALS: BP 95/52
== END 2020-10-01 14:30 | disposition home or self-care (01) ==
LOC: M INFU 09:53
PROVIDERS: ATTEND Internal Medicine Nephrology
DX: D64.9 Anemia, unspecified (principal); Z88.2 Allergy status to sulfonamides; Z88.6 Allergy status to analgesic agent; Z88.8 Allergy status to other drugs, medicaments and biological substances
CPT/HCPCS: 36415; 82043; 85025; 96365; 96366; J1439

== ENCOUNTER → 2021-06-25 | Outpatient (REF) | payer MEDICARE, MEDICAID ==
[~2021-06-25] MED LIST changes: +FERR324T21 PO; -FERR325T16 PO; +HYDR-3490 PO; -HYDR25TAB PO
[2021-06-25 18:29] LABS: FREE T4 1.05 NG/DL (0.76-1.46); MAGNESIUM LEVEL 2.2 MG/DL (1.8-2.4); PERCENT SATURATION 20.5 % (13.2-45.0); THYROID STIMULATING HORMONE 1.51 uIU/ML (0.358-3.740)
[2021-06-25 18:30] LABS: FOLATE 10.8 NG/ML
== END ==
LOC: M LAB REF 17:16
PROVIDERS: ATTEND Internal Medicine Nephrology
DX: D64.9 Anemia, unspecified (principal); E03.9 Hypothyroidism, unspecified; N18.4 Chronic kidney disease, stage 4 (severe); E83.42 Hypomagnesemia

== ENCOUNTER 2023-08-23 18:33 | Emergency (ER) | payer MEDICAID, MEDICARE ==
[~2023-08-23] VITALS: Ht 149.9 cm; Wt 74.2 kg
[~2023-08-23 18:33] MED LIST changes: -FENO48TA7 PO; +FENO48TA8 PO; +LOSA25TA13 PO; -LOSA25TA14 PO
[2023-08-23] MEDS ORDERED: AUGMENTIN 875 MG TAB PO ONE (21:50)
[2023-08-23] MEDS ORDERED: AMOX875T2 PO (21:51)
[2023-08-23] MEDS ORDERED: LOSARTAN 25 MG TAB PO ONE (22:30)
[2023-08-23] MEDS ORDERED: METOPROLOL SUCC (TopROL XL) 50MG **XL** TAB PO ONE (22:30)
[2023-08-23 22:33] VITALS: O2SAT 100
[2023-08-23 22:37] VITALS: BP 228/102
[2023-08-23 23:17] VITALS: BP 180/80
[2023-08-23 23:26] VITALS: TEMP 98.4
== END 2023-08-23 23:30 | disposition home or self-care (01) ==
LOC: M ED 18:33
DX: J06.9 Acute upper respiratory infection, unspecified (principal); I50.9 Heart failure, unspecified; I10 Essential (primary) hypertension; E78.5 Hyperlipidemia, unspecified; N18.30 Chronic kidney disease, stage 3 unspecified; J44.9 Chronic obstructive pulmonary disease, unspecified; Z79.01 Long term (current) use of anticoagulants; Z79.82 Long term (current) use of aspirin; Z79.4 Long term (current) use of insulin; Z79.899 Other long term (current) drug therapy; Z88.6 Allergy status to analgesic agent; Z88.2 Allergy status to sulfonamides; Z88.1 Allergy status to other antibiotic agents; Z88.8 Allergy status to other drugs, medicaments and biological substances